=== PATIENT | male | born 1965 | race Caucasian/White ===

== ENCOUNTER → 2018-07-13 | Outpatient (CLI) | payer OTHER ==
[2018-07-13 09:26] LABS: HCT 47.3 % (39.0-53.0); HGB 14.6 gm/dL (13.0-17.5); MCH 24.8 pg (25.0-35.0); MCHC 30.7 g/dL (31.0-37.0); MCV 80.6 fL (80.0-100.0); Mean Platelet Volume 7.6; Platelet Count 178 k/uL (150-450); RBC 5.87 m/uL (4.30-5.90); RDW 12.8 % (11.5-15.5); WBC 5.3 k/uL (3.8-10.6)
[2018-07-13 16:40] LABS: Albumin 4.6 g/dL (3.80-4.90); Anion Gap 4.3 mmol/L (4.00-12.00); Calcium 9.6 mg/dL (8.7-10.3); Carbon Dioxide 28.7 mmol/L (21.6-31.8); Globulin 2.3 g/dL (1.6-3.3); LDL Cholesterol,Calculated 73.6 mg/dL (0.0-131.0); Potassium 4.5 mmol/L (3.5-5.5); Total Bilirubin 0.7 mg/dL (0.3-1.2); Total Protein 6.9 g/dL (6.2-8.2); VLDL Calculation 15.4 mg/dL (5.00-40.00)
[2018-07-13 20:45] LABS: Hemoglobin A1C 5.9 % (4.0-6.0)
== END | disposition home or self-care (01) ==
LOC: LABWHC1 08:38
PROVIDERS: ATTEND Internal Medicine Clinical Cardiac Electrophysiology
DX: E78.5 Hyperlipidemia, unspecified (principal); I48.91 Unspecified atrial fibrillation
CPT/HCPCS: 36415; 80053; 80061; 83036; 85027

== ENCOUNTER → 2019-06-06 | Outpatient (CLI) | payer OTHER ==
[2019-06-06 18:25] LABS: Basophils % (A) 1 %; Eosinophils # (A) 0.1 k/uL (0-0.7); Eosinophils % (A) 2 %; HCT 42.6 % (39.0-53.0); HGB 13.3 gm/dL (13.0-17.5); Lymphocytes # (A) 1.4 k/uL (1.0-4.8); Lymphocytes % (A) 25 %; MCH 25.3 pg (25.0-35.0); MCHC 31.3 g/dL (31.0-37.0); MCV 80.7 fL (80.0-100.0); Mean Platelet Volume 8.4; Monocytes # (A) 0.3 k/uL (0-1.0); Monocytes % (A) 6 %; Neutrophils # (A) 3.7 k/uL (1.3-7.7); Neutrophils % (A) 66 %; Platelet Count 183 k/uL (150-450); RBC 5.27 m/uL (4.30-5.90); RDW 12.7 % (11.5-15.5); WBC 5.6 k/uL (3.8-10.6)
[2019-06-06 19:46] LABS: Erythrocyte Sedimentation Rate 13 mm/hr (0-15)
[2019-06-07 00:16] LABS: Cyclic Citrull Pep IgG Unit <0.5 U/mL; Cyclic Citrullinated Pep IgG NEGATIVE (NEGATIVE)
[2019-06-07 00:30] LABS: C Reactive Protein <0.4 mg/dL (0.0-0.8); Rheumatoid Factor, Qnt 6 IU/mL (0-15)
[2019-06-07 00:37] LABS: Uric Acid 8.1 mg/dL (3.7-8.7)
== END | disposition home or self-care (01) ==
LOC: LABWHC1 16:19
PROVIDERS: ATTEND Podiatrist Foot & Ankle Surgery
DX: D64.9 Anemia, unspecified (principal); M19.90 Unspecified osteoarthritis, unspecified site
CPT/HCPCS: 36415; 84550; 85025; 85652; 86038; 86140; 86200; 86431

== ENCOUNTER → 2021-09-28 | Outpatient (CLI) | payer OTHER ==
[2021-09-28 14:38] LABS: HCT 43.7 % (39.6-50.0); HGB 13.1 g/dL (13.0-17.0); MCH 24.5 pg (27.0-32.0); MCV 81.7 fL (80.0-97.0); Mean Platelet Volume 11.4 fL (9.5-12.2); NRBC Per 100 WBC 0 /100 WBCS (0.0-0.0); Platelet Count 177 X 10*3/uL (140-440); RBC 5.35 X 10*6/uL (4.40-5.60); RDW 13.2 % (11.5-14.5); WBC 4.87 X 10*3/uL (4.50-10.00)
[2021-09-28 18:35] LABS: ALT 27 U/L (10-49); AST 18 U/L (14-35); African American GFR (CKD) 97.8 (60.0-200.0); Albumin 4.4 g/dL (3.8-4.9); Albumin/Globulin Ratio 1.91 (1.60-3.17); Alkaline Phosphatase 70 U/L (41-126); Blood Urea Nitrogen 17.8 mg/dL (9.0-27.0); Calcium 9.3 mg/dL (8.7-10.3); Chloride 107 mmol/L (96-109); Chol/HDL Ratio 2.16 Ratio; Globulin 2.3 g/dL (1.6-3.3); Glucose 97 mg/dL (70-110); LDL Cholesterol,Calculated 53.3 mg/dL (0.0-131.0); Non-African American GFR(CKD) 84.4 (60.0-200.0); Potassium 4.5 mmol/L (3.5-5.5); Sodium 144 mmol/L (135-145); Total Protein 6.7 g/dL (6.2-8.2); VLDL Calculation 11.76 mg/dL (5.00-40.00)
== END | disposition home or self-care (01) ==
LOC: LABWHC1 10:54
PROVIDERS: ATTEND Internal Medicine Clinical Cardiac Electrophysiology
DX: I48.91 Unspecified atrial fibrillation (principal); E78.5 Hyperlipidemia, unspecified
CPT/HCPCS: 36415; 80053; 80061; 84443; 85027

== ENCOUNTER → 2023-02-27 | Outpatient (CLI) | payer OTHER ==
[2023-02-28 02:47] LABS: Basophils # (A) 0.04 X 10*3/uL (0.00-0.10); Basophils % (A) 0.7 %; Eosinophils # (A) 0.06 X 10*3/uL (0.04-0.35); HCT 43.1 % (39.6-50.0); HGB 13.2 g/dL (13.0-17.0); Lymphocytes # (A) 2.04 X 10*3/uL (0.90-5.00); Lymphocytes % (A) 34.6 %; MCHC 30.6 g/dL (32.0-37.0); MCV 81.8 FL (80.0-97.0); Mean Platelet Volume 11.7 FL (9.5-12.2); Monocytes % (A) 5.1 %; NRBC Per 100 WBC 0 X 10*3/uL (0.00-0.01); Neutrophils # (A) 3.45 X 10*3/uL (1.80-7.70); Neutrophils % (A) 58.4 %; Platelet Count 196 X 10*3/uL (140-440); RBC 5.27 X 10*6/uL (4.40-5.60); RDW 13.2 % (11.5-14.5)
[2023-02-28 02:52] LABS: ALT 22 U/L (10-49); AST 19 U/L (14-35); Albumin 4.4 g/dL (3.8-4.9); Albumin/Globulin Ratio 1.76 Ratio (1.60-3.17); Alkaline Phosphatase 74 U/L (41-126); BUN/Creat Ratio 18.91 Ratio (12.00-20.00); Blood Urea Nitrogen 20.8 mg/dL (9.0-27.0); Calcium 9.4 mg/dL (8.7-10.3); Carbon Dioxide 26.2 mmol/L (21.6-31.8); Chloride 105 mmol/L (96-109); Chol/HDL Ratio 2.26 Ratio; Globulin 2.5 g/dL (1.6-3.3); Glucose 93 mg/dL (70-110); LDL Cholesterol,Calculated 61.9 mg/dL (0.0-131.0); Potassium 4.1 mmol/L (3.5-5.5); Prostate Specific Antigen 1.76 ng/mL (0.000-3.500); Sodium 143 mmol/L (135-145); T4, Free (Free Thyroxine) 1.44 ng/dL (0.80-1.80); Total Bilirubin 0.7 mg/dL (0.3-1.2); Total Protein 6.9 g/dL (6.2-8.2); Uric Acid 8.3 mg/dL (3.7-8.7); VLDL Calculation 14.02 mg/dL (5.00-40.00)
== END | disposition home or self-care (01) ==
LOC: LABWHC1 15:41
PROVIDERS: ATTEND Family Medicine
DX: Z00.00 Encounter for general adult medical examination without abnormal findings (principal); I10 Essential (primary) hypertension; I48.91 Unspecified atrial fibrillation; E78.5 Hyperlipidemia, unspecified; M10.9 Gout, unspecified
CPT/HCPCS: 36415; 80053; 80061; 82306; 83036; 84153; 84439; 84443; 84550; 85025

== ENCOUNTER → 2023-03-14 | Outpatient (CLI) | payer OTHER ==
--- NOTE | 2023-03-15 07:53 | US ---
EXAMINATION TYPE: US kidneys/renal and bladder DATE OF EXAM: 03/14/2023 COMPARISON: NONE CLINICAL INDICATION: Male, 58 years old with history of R31.1 MICROSCOPIC HEMATURIA; Microscopic José Miguel turia. No pain or other symptoms EXAM MEASUREMENTS: Right Kidney: 11.5 x 4.0 x 5.7 cm Left Kidney: 12.7 x 5.1 x 6.1 cm Right Kidney: There is a 1.2 x 1.2 x 1.6 anechoic lesion seen in the mid portion of the kidney. There is also a 1.0 x 0.9 x 1.0 anechoic lesion off of the inferior pole. Left Kidney: There is a 4.0 x 4.3 x 4.1cm anechoic lesion seen in the inferior portion of the left ki dney. Possible small renal sinus cystic lesions. Bladder: wnl Bilateral Jets seen: Yes There is no evidence for hydronephrosis at this point in time. No nephrolithiasis is seen. No solid masses are identified. The urinary bladder is anechoic. Bilateral ureteral jets are seen. IMPRESSION: Simple renal cysts.
== END | disposition home or self-care (01) ==
LOC: RADUSWWP 15:55
PROVIDERS: ATTEND Urology
DX: N28.1 Cyst of kidney, acquired (principal); R31.1 Benign essential microscopic hematuria
CPT/HCPCS: 76770

== ENCOUNTER → 2023-10-31 | Outpatient (CLI) | payer BC | END | disposition home or self-care (01) | LOC: LABWHC1 11:30 | PROVIDERS: ATTEND Family Medicine | DX: Z96.641 Presence of right artificial hip joint (principal) | CPT/HCPCS: 87070 ==

== ENCOUNTER → 2024-04-09 | Outpatient (CLI) | payer BC | END | disposition home or self-care (01) | LOC: LABWHC1 16:21 | PROVIDERS: ATTEND Family Medicine | DX: Z01.812 Encounter for preprocedural laboratory examination (principal) | CPT/HCPCS: 87070 ==

== ENCOUNTER → 2024-10-08 | Outpatient (CLI) | payer BC ==
[2024-10-08 13:54] VITALS: BP 129/84; PULSE 69; RESP 12; TEMP 98.7
--- NOTE | 2024-10-08 14:16 | P.SLEEP ---
History of Present Illness DATE: 10/08/2024 CONSULTATION/NEW PATIENT EVALUATION HISTORY OF PRESENT ILLNESS/SLEEP-WAKE EVALUATION: 59-year-old gentleman had be en evaluated in the sleep center for possible obstructive sleep apnea hypopnea syndrome. SLEEP SCHEDULE: Usually sleep schedule from 10 PM to 6:30 AM on weekdays and from 11 PM to 7 AM on weekend. FALLING ASLEEP: No problems with falling asleep. DURING SLEEP: Patient snores and has witnessed episodes of stop breathing during the sleep by his . Patient wakes up from sleep up to 5 times with up to 2 episodes of nocturia. Positive history of awakenings with dry mouth, palpitation. No history of hypnogogical hallucinations, sleep paralysis, or cataplexy. DURING THE DAY/WAKE STATE: In the morning patient wake up tired, has episodes of irritability. [place] sleepiness scale is 6. Patient may take 1 nap at afternoon time. PAST MEDICAL HISTORY: History of atrial fibrillation, hyperlipidemia, nasal problems. PAST SURGICAL HISTORY: Status bilateral hip replacements in 2023 and 2024, left knee arthroscopic surgery, tonsillectomy and adenoidectomy. MEDICATIONS: Please see below. SOCIAL HISTORY: Please see below. FAMILY HISTORY: Please see below. REVIEW OF SYSTEMS: Snoring, multiple awakenings from sleep. No fevers. No double vision. No recent chest pain. No shortness of breath. No abdominal pain. No bleeding episodes. No blood in urine. No seizure episodes. PHYSICAL EXAMINATION: GENERAL: A pleasant patient without any distress. VITAL SIGNS: Please see below, weight 186.6 pounds, BMI 25.9. HEENT: PERRLA, EOMI. Evaluation of oropharynx showed tongue protrudes midline, low position of soft palate Mallampati 23, retrognathia 2 mm, restriction of nasal breathing bilaterally. NECK: Supple. No JVD. Thyroid is not palpable. 15.5 inches in circumference. LUNGS: Clear to percussion and to auscultation. Good air exchange. No wheezing or rhonchi. HEART: S1, S2 regular. No murmurs, gallops or rubs. ABDOMEN: Soft and nontender. Bowel sounds are present. No organomegaly appreciated. EXTREMITIES: No clubbing or cyanosis. STONE PAVER: Awake, alert, and oriented x3. Cranial nerves 2 to 7 intact. There is no fasciculation or atrophy noted. No focal deficits observed. ASSESSMENT: 1. Snoring, multiple awakenings from sleep, retrognathia 2 mm, moderately low position of soft palate Mallampati 23. Obstructive sleep apnea hypopnea syndrome. 2. Bilateral restriction of nasal breathing. 3. History of atrial fibrillation. 4. Hyperlipidemia. 5 status post bilateral hip replacement. 6 . Status post left knee arthroscopic surgery. 7. Status post tonsillectomy and adenoidectomy. PLAN: 1. Polysomnography for evaluation of patient's breathing during sleep. 2. Following plan after reading sleep study. 3. Preferable position during sleep on the side. 4. No driving if patient feels any sleepiness. Patient is aware of civil and criminal liability for unsafe driving. 5. Sleep hygiene with regular sleep time for at least 7.5-8 hours. 6. Watching weight. Thank you very much for referring this patient for consultation. Sincerely, Oren Castro MD, PhD, FAASM. Diplomat of [employer], Sleep Medicine Board by [place] [employer] [facility] cc: Nathan Reed DO, Harris Huertas [employer] Past Medical History Past Medical History: Atrial Fibrillation Additional Past Medical History / Comment(s): sonus headaches History of Any Multi-Drug Resistant Organisms: None Reported Past Surgical History: Joint Replacement, Orthopedic Surgery Additional Past Surgical History / Comment(s): right and left hip replaced, left knee arthroscopy, T&A Past Anesthesia/Blood Transfusion Reactions: No Reported Reaction Past Psychological History: No Psychological Hx Reported Smoking Status: Never smoker Past Alcohol Use History: Daily Past Drug Use History: None Reported Medications and Allergies Home Medications Medication Instructions Recorded Confirmed Type Aspirin [Adult Low Dose Aspirin EC] 81 mg PO 10/08/24 History Flecainide Acetate [Tambocor] 100 mg PO 10/08/24 History Rosuvastatin [Crestor] 10 PO ONCE 10/08/24 History Verapamil HCl [Verapamil Sr] 120 mg PO DAILY 10/08/24 10/08/24 History Physical Exam Vitals: Vital Signs Temp Pulse Resp BP Pulse Ox 10/08/24 13:52 98.7 F 69 12 129/84 99 Sleep Note - Sleep Data ESS Total: 6 - Sleep Note Sleep Note: Temperature: 98.7 F Pulse Rate: 69 Respiratory Rate: 12 Blood Pressure: 129/84 SpO2: 99 Height: Weight: BMI: Neck Circumference:
== END ==
LOC: 3 N SLEEP 13:12
PROVIDERS: ATTEND Internal Medicine
DX: G47.33 Obstructive sleep apnea (adult) (pediatric) (principal); E78.5 Hyperlipidemia, unspecified; R06.89 Other abnormalities of breathing; Z96.643 Presence of artificial hip joint, bilateral; Z90.09 Acquired absence of other part of head and neck; Z86.79 Personal history of other diseases of the circulatory system
CPT/HCPCS: 99211